=== PATIENT | male | born 1990 | race Caucasian/White ===

== ENCOUNTER 2019-06-20 00:59 | Emergency (ER) | payer SELFPAY ==
[2019-06-20 01:01] VITALS: BP 171/100; PULSE 109; RESP 20; TEMP 36.6; O2SAT 98; BMI 23.7
--- NOTE | 2019-06-20 01:08 | XR_ITS ---
WS: [id number] XR elbow RT min 3V* [id number] REASON FOR EXAM: Right elbow injury FINDINGS: The ulna, radius, olecranon process, medial and lateral collateral ligaments, were all norm al. There is no unusual fat pad changes seen. No soft tissue abnormalities. XR/XR elbow RT min 3V* [id number] IMPRESSION: Negative right elbow.
--- NOTE | 2019-06-20 01:08 | XR_ITS ---
WS: [id number] XR tibia fibula RT 2V [id number] REASON FOR EXAM: Right lower leg pain FINDINGS: Multiple views of the tibia and fibula show normal appearance with no fractures, dislocatio n, or other dyscrasias. There is no soft tissue abnormalities seen. No unusual calcifications are seen. The knees and ankles were normal. XR/XR tibia fibula RT 2V [id number] IMPRESSION: Negative right tibia-fibula study.
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
[2019-06-20 03:29] VITALS: BP 162/111; PULSE 90; O2SAT 97
[2019-06-20] MEDS: ketorolac 30 mg/mL INJ IM (03:33)
== END 2019-06-20 03:29 | disposition home or self-care (01) ==
PROVIDERS: Emergency Provider Physician Assistant
DX: S50.01XA Contusion of right elbow, initial encounter (principal); S60.511A Abrasion of right hand, initial encounter; F17.200 Nicotine dependence, unspecified, uncomplicated; Y09 Assault by unspecified means
CPT/HCPCS: 73080; 73590; 96372; 99281; 99283; J1885

== ENCOUNTER 2019-07-09 10:08 | Outpatient (CLI) | payer SELFPAY ==
--- NOTE | 2019-07-09 10:29 | CT_ITS ---
WS: [id number] CT RIGHT KNEE, NONCONTRAST, 3-D reformats. HISTORY: RIGHT knee joint pain. Technique: All CT scans at [facility] use at least one of these dose optimization techniq ues: automated exposure control; mA and/or kV adjustment per patient size (includes targeted exams wh ere dose is matched to clinical indication); or iterative reconstruction. DLP: 1132.62 mGycm COMPARISON: RIGHT tibia-fibula 06/20/2019. Study is limited by motion artifact. No fractures or dislocation. No osteochondral defects are identi fied. There is a sclerotic lesion in the posterior proximal tibia which is probably a bone island or partially healed cortical defect. Subcortical lucency with sclerotic margin in the posterior tibial m etaphysis consistent with a benign cortical defect. There is no joint effusion. Patella is in normal position. Muscles are symmetric with no atrophy. No hematomas. CT/CT knee RT wo con* [id number] IMPRESSION: 1. No acute fracture or joint effusion. 2. Nonossifying cortical defect posterior tibial metaphysis.
== END 2019-07-09 10:09 | disposition home or self-care (01) ==
PROVIDERS: PCP Nurse Practitioner Family; Visit Provider Nurse Practitioner Family
DX: M25.561 Pain in right knee (principal)
CPT/HCPCS: 73700

== ENCOUNTER → 2019-09-08 14:50 | Outpatient (BNVA) | payer SELFPAY | PROVIDERS: PCP Nurse Practitioner Family; Referring Provider Nurse Practitioner Family; Visit Provider Orthopaedic Surgery | DX: M25.521 Pain in right elbow (principal); M25.421 Effusion, right elbow | CPT/HCPCS: 73080 ==

== ENCOUNTER 2023-12-24 18:03 | Emergency (ER) | payer MEDICAID, SELFPAY ==
[2023-12-24] VITALS (7 sets, daily range): BP systolic 168–200; BP diastolic 118–137; PULSE 88–106; RESP 18–20; TEMP 36.9; O2SAT 95–101
--- NOTE | 2023-12-24 18:16 | ECG_ITS ---
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 Measurements Intervals [place] Rate: 103 P: 46 [place]: 137 QRS: 60 QRSD: 91 T: 21 QT: 321 QTc: 421 Interpretive Statements SINUS TACHYCARDIA No previous ECG available for comparison Electronically Signed On 12-25-2023 8:04:38 CDT by Talha Garcia M.D. [id number]
--- NOTE | 2023-12-24 18:21 | XRR_ITS ---
PROCEDURE INFORMATION: Exam: XR Chest Exam date and time: 12/24/2023 6:24 PM Age: 32 years old Clinical indication: Other: Hypertension TECHNIQUE: Imaging protocol: Radiologic exam of the chest. Views: 1 view. COMPARISON: No relevant prior studies available. FINDINGS: Lungs: The lungs are adequately expanded. No focal consolidations or pulmonary edema. Pleural spaces: No pleural effusions or pneumothorax. Heart/Mediastinum: No cardiomegaly. Bones/joints: No acute fractures. XR/XR chest 1V portable [id number] IMPRESSION: No acute pulmonary disease.
--- NOTE | 2023-12-24 18:22 | W.ED.CHESTPA ---
HPI - Chest Pain General: Chief Complaint: Chest Pain Stated Complaint: High BP Time Seen by Provider: 12/24/23 18:18 History of Present Illness: 32-year-old man who presents to the emergency room with chest pain. This been going on for a few days now. Left-sided. Down his left arm. Pressure. He has been having some dizziness. Mild shortness of breath. He said it has been going on for some time now but much worse over the last couple of days. No lower extremity swelling. No nausea or vomiting. Related Data Previous Rx's Medication Instructions Recorded lisinopril 20 1 tab PO DAILY #30 tabs 12/24/23 mg-hydrochlorothiazide 12.5 mg tablet Allergies Allergy/AdvReac Type Severity Reaction Status Date / Time No Known Allergies Allergy Verified 12/24/23 18:16 Review of Systems Narrative: Constitutional symptoms: Negative except as documented in HPI. Skin symptoms: Negative except as documented in HPI. Eye symptoms: Negative except as documented in HPI. ENMT symptoms: Negative except as documented in HPI. Respiratory symptoms: Negative except as documented in HPI. Cardiovascular symptoms: Negative except as documented in HPI. Gastrointestinal symptoms: Negative except as documented in HPI. Genitourinary symptoms: Negative except as documented in HPI. Musculoskeletal symptoms: Negative except as documented in HPI. Neurologic symptoms: Negative except as documented in HPI. Psychiatric symptoms: Negative except as documented in HPI. Endocrine symptoms: Negative except as documented in HPI. [facility] ED PFSH: Social History (Updated 09/08/19 @ 14:27 by Jennifer Montalvo LPN) Smoking and tobacco/nicotine status: never used tobacco/nicotine Alcohol intake: current Alcohol intake frequency: few times a week Substance/Drug Use: current Physical Exam Narrative: EXAM NARRATIVE: General: Alert, no acute distress. Skin: Warm, dry. Head: Normocephalic, atraumatic. Neck: Supple, trachea midline. Eye: Extraocular movements are intact. Ears, nose, mouth and throat: mucosa moist. Cardiovascular: Regular, Normal peripheral perfusion. Respiratory: Lungs are clear to auscultation, respirations are non-labored, breath sounds are equal, Symmetrical chest wall expansion. Gastrointestinal: Soft, Nontender, Non distended Musculoskeletal: Normal ROM, no deformity. Neurological: Alert and oriented, No focal neurological deficit observed. Psychiatric: Cooperative, appropriate mood & affect. Course Vital Signs: Vital signs: Vital Signs Temperature 98.4 F 12/24/23 18:09 Pulse Rate 106 H 12/24/23 19:29 Respiratory Rate 20 H 12/24/23 19:29 Blood Pressure 182/120 12/24/23 19:43 Pulse Oximetry 101 H 12/24/23 19:29 Oxygen Delivery Me thod Room Air 12/24/23 19:29 MDM - Chest Pain Medical Decision Making Differential diagnosis for patient with chest pain includes but is not limited to and based on the above HPI, review of systems and physical exam: Pneumonia. unstable angina. angina. Acute coronary syndrome / [place]. Pulmonary embolism. Costochondritis / musculoskeletal. Pleurisy. Pericarditis. Esophageal spasm. Pancreatis. Cholecystitis. Orders placed to evaluate differential diagnosis based on the above differential, HPI and physical exam EKG: Time 1805. Rate 103. Sinus tachycardia, No ST-T changes, no ectopy, normal CO & QRS intervals, This was reviewed and interpreted by myself the ER physician at 1807. Chest x-ray: No acute process. No infiltrate. No pneumothorax. This was reviewed and interpreted by myself the ER physician. Lab Review: Laboratory results were reviewed and interpreted by myself the emergency room physician. Lab work is unremarkable. No leukocytosis. BUN and creatinine are mildly elevated at 17 and 1.1. This may be related to his blood pressure. I reviewed the patient's medical record. Reexamination: Patient remained stable. No increased work of breathing. No altered mental status. No focal motor deficits. Blood pressure is improving with medications. Assessment and plan: Accelerated hypertension Noncardiac chest pain ?Clonidine and first dose lisinopril hydrochlorothiazide here in the emergency room. - Discharged home - Discussed findings and plan with patient. Answered any questions. - All laboratory values were reviewed and interpreted personally by myself, the ER physician - All imaging was reviewed and interpreted personally by myself, the ER physician. - Evaluation and treatment of this problem were appropriate in the emergency setting Lab Data 12/24/23 18:32 12/24/23 18:32 Radiology Impressions Chest X-Ray 12/24/23 18:21 IMPRESSION: No acute pulmonary disease. Laboratory Results WBC 7.70 10^3/uL (3.29-11.43) 12/24/23 18:32 RBC 5.49 10^6/uL (3.85-5.65) 12/24/23 18:32 Hgb 17.30 g/dL (11.27-16.99) H 12/24/23 18:32 Hct 51.0 % (37-53) 12/24/23 18:32 MCV 92.9 fl (82-101) 12/24/23 18:32 MCH 31.5 pg (27-33) 12/24/23 18: MCHC 33.9 g/dL (30-55) 12/24/23 18:32 RDW 12.3 % (12.1-15.1) 12/24/23 18:32 Plt Count 179 10^3/cmm (157-399) 12/24/23 18:32 MPV 11.6 fL (7.4-10.4) H 12/24/23 18:32 Neut % (Auto) 63.1 % 12/24/23 18:32 Lymph % (Auto) 24.5 % 12/24/23 18:32 Emmons % (Auto) 9.6 % 12/24/23 18:32 Eos % (Auto) 0.6 % 12/24/23 18:32 Baso % (Auto) 1.6 % 12/24/23 18:32 Neut # (Auto) 4.85 10^3/uL (1.8-7.7) 12/24/23 18: Lymph # (Auto) 1.9 10^3/uL (0.8-4.8) 12/24/23 18:32 Emmons # (Auto) 0.7 10^3/uL (0.2-0.9) 12/24/23 18: Eos # (Auto) 0.1 10^3/uL (0.0-0.8) 12/24/23 18: Baso # (Auto) 0.1 10^3/uL (0.0-0.1) 12/24/23 18: Nucleated RBC % (auto) 0 % 12/24/23 18: Nucleated RBCs # 0.0 /100WBC 12/24/23 18:32 Sodium 137 mmol/L (136-145) 12/24/23 18:32 Potassium 4.5 mmol/L (3.5-5.1) 12/24/23 18:32 Chloride 98 mmol/L (98-107) 12/24/23 18:32 Carbon Dioxide 22 mmol/L (22-29) 12/24/23 18:32 Anion Gap 21.5 (5-19) H 12/24/23 18:32 BUN 17 mg/dL (6-20) 12/24/23 18:32 Creatinine 1.1 mg/dL (0.7-1.2) 12/24/23 18:32 GFR Calculation 78.6 mL/min (90-130) L 12/24/23 18:32 Glucose 102 mg/dL (65-115) 12/24/23 18:32 Calculated Osmolality 286 mOsm/kg (285-295) 12/24/23 18:32 Calcium 9.9 mg/dL (8.5-10.5) 12/24/23 18:32 Total Bilirubin 0.3 mg/dL (0.15-1.2) 12/24/23 18:32 AST 58 U/L (0-40) H 12/24/23 18:32 ALT 143 U/L (0-41) H 12/24/23 18:32 Alkaline Phosphatase 77 U/L (40-130) 12/24/23 18:32 Troponin T Baseline < 6 ng/L (0-15) 12/24/23 18:32 Total Protein 8.3 g/dL (6.6-8.7) 12/24/23 18:32 Albumin 4.9 g/dL (3.5-5.2) 12/24/23 18:32 Globulin 3.4 g/dL (1.3-4.6) 12/24/23 18:32 All radiology interpretation(s) finalized by discharge Discharge Plan Discharge Patient Disposition: Home Clinical Impression: Accelerated hypertension, Non-cardiac chest pain Condition: Stable Prescriptions: New lisinopril-hydrochlorothiazide 20-12.5 mg tablet 1 tab PO DAILY Qty: 30 0RF Discharge Orders: Discharge ED (Routine); Ordered 12/24/23 Ordered By: Radhika Beltran Referrals: Lionel Kauffman NP [Primary Care Provider] - Discharge Diet: Usual diet Discharge Activity: Increase activity as tolerated Patient Instructions: Hypertension (ED) Activity Restrictions/Additional Instructions: Discontinue blood pressure medications if you start feeling dizzy and her having low blood pressure. Please keep your follow-up with your primary care provider for continued blood pressure control. Thank you for choosing [facility] for your healthcare needs today. Please realize this is an emergency room and that we are providing you with a medical screening exam and this may not be complete and all inclusive of all the testing and or work up that you may need to determine your ailment or severity of your illness. You have been screened and evaluated and felt safe for discharge. Health conditions do change or evolve sometimes and as such it is important that you follow up with your Primary Doctor to be re checked, 3-5 days is a general good time frame for follow up. You are always welcome to return to the ED for re assessment if your symptoms are worsening or you have new concerns Coding Level of Care Code ED Pr Manager for Mirta Harrington
[2023-12-24 18:43] LABS: Basophils # 0.1 10^3/uL (0.0-0.1); Basophils % 1.6 %; Eosinophils # 0.1 10^3/uL (0.0-0.8); Eosinophils % 0.6 %; Lymphocytes # 1.9 10^3/uL (0.8-4.8); Lymphocytes % 24.5 %; Mean Corpuscular HGB Conc 33.9 g/dL (30-55); Mean Corpuscular Hemoglobin 31.5 pg (27-33); Mean Corpuscular Volume 92.9 fl (82-101); Mean Platelet Volume 11.6 fL (7.4-10.4); Monocytes # 0.7 10^3/uL (0.2-0.9); Monocytes % 9.6 %; Neutrophils # 4.85 10^3/uL (1.8-7.7); Neutrophils % 63.1 %; Nucleated Red Blood Cells % 0 %; Platelet Count 179 10^3/cmm (157-399); Red Blood Count 5.49 10^6/uL (3.85-5.65); Red Cell Distribution Width 12.3 % (12.1-15.1)
[2023-12-24 19:09] LABS: Troponin(5th) Baseline < 6 ng/L (0-15)
[2023-12-24 19:10] LABS: Alanine Aminotransferase 143 U/L (0-41); Albumin Level 4.9 g/dL (3.5-5.2); Alkaline Phosphatase 77 U/L (40-130); Anion Gap 21.5 (5-19); Aspartate Amino Transferase 58 U/L (0-40); Blood Urea Nitrogen 17 mg/dL (6-20); Calcium 9.9 mg/dL (8.5-10.5); Carbon Dioxide 22 mmol/L (22-29); Chloride 98 mmol/L (98-107); Creatinine Clr Calc Pharmacy 124.9472; Globulin 3.4 g/dL (1.3-4.6); Glomerular Filtration Rate 78.6 mL/min (90-130); Glucose 102 mg/dL (65-115); Osmolality Calculated 286 mOsm/kg (285-295); Potassium 4.5 mmol/L (3.5-5.1); Sodium 137 mmol/L (136-145); Total Bilirubin 0.3 mg/dL (0.15-1.2); Total Protein 8.3 g/dL (6.6-8.7)
[2023-12-24] MEDS: hydroCHLOROthiazide 25 mg Tablet 12.5 MG PO (19:27)
[2023-12-24] MEDS: lisinopril 20 mg Tablet PO (19:27)
[2023-12-24] MEDS: cloNIDine 0.1 mg Tablet PO (19:28)
== END 2023-12-24 20:19 | disposition home or self-care (01) ==
PROVIDERS: Emergency Provider Emergency Medicine; PCP Nurse Practitioner Family
DX: R07.89 Other chest pain (principal); I10 Essential (primary) hypertension; R00.0 Tachycardia, unspecified
CPT/HCPCS: 36415; 71045; 80053; 84484; 85025; 93005; 99285

== ENCOUNTER → 2024-04-07 15:07 | Outpatient (BNVA) | payer MEDICAID, SELFPAY | PROVIDERS: PCP Nurse Practitioner; Visit Provider Nurse Practitioner | DX: I10 Essential (primary) hypertension (principal); F41.8 Other specified anxiety disorders; R74.01 Elevation of levels of liver transaminase levels | CPT/HCPCS: 80053; 80061; 85025; 86705; 86706; 86709; 86803; 87340 ==

== ENCOUNTER 2024-12-26 17:10 | Emergency (ER) | payer SELFPAY ==
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
--- OUTSIDE RECORDS SUMMARY | 2024-12-26 17:15 | XMS_ITS | Encounter Summary ---
Author Organization [facility] Address [address] [place] [address] Care Team Providers Care Shop Tailor Apprentice Name Role Phone Christine Castano MD, Ortiz Heredia Primary Care Provider Encounter Details Date Type Department Care Team (Late st Contact Info) Description 08/20/2000 Outpatient Historical [facility] [place] [address] [place] [id number] Ortiz Maya MD NO ADDRESS ON FILE Social History Tobacco Use Types Packs/Day Years Used Date Smoking Tobacco: Never Assessed Sex and Gender Information Value Date Recorded Sex Assigned at Not on file Legal Sex Male 3:35 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
--- OUTSIDE RECORDS SUMMARY | 2024-12-26 17:15 | XMS_ITS | Encounter Summary ---
Author Organization [facility] Address [address] [place] [address] Care Team Providers Care Aluminum Molder Name Role Phone Christine Castano MD, Oritz Heredia Primary Care Provider Encounter Details Date Type Department Care Team ([facility] st Contact Info) Description 08/20/2000 Outpatient Historical [facility] Ortiz Maya MD NO ADDRESS ON FILE Unspecified asthma(493.90) (Primary Dx) Social History Tobacco Use Types Packs/Day Years Used Date Smoking Tobacco: Never Assessed Sex and Gender Information Value Date Recorded Sex Assigned at Not on file Legal Sex Male 3:35 AM CHEF DE CUISINE Gender Identity Not on file Sexual Orientation Not on file documented as of this encounter Plan of Treatment Not on file documented as of this encounter Visit Diagnoses Diagnosis Unspecified asthma(493.90)- Primary Unspecified asthma documented in this encounter Care Teams Aluminum Molder Relationship Specialty Start Date End Date Ortiz King Jr., MD [address] [address] PCP - General 06/04/09 documented as of this encounter
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
[2024-12-26 17:17] VITALS: BP 150/106; PULSE 126; RESP 19; TEMP 37.4; O2SAT 98; BMI 29.5
--- NOTE | 2024-12-26 17:17 | XRR_ITS ---
PROCEDURE INFORMATION: Exam: XR Chest Exam date and time: 12/26/2024 5:47 PM Age: 34 years old Clinical indication: Shortness of breath; Additional info: Chest pressure; HTN TECHNIQUE: Imaging protocol: Radiologic exam of the chest. Views: 1 view. COMPARISON: CR XR chest 1V portable [id number] 12/24/2023 6:24 PM FINDINGS: Lungs: Unremarkable. No consolidation. Pleural spaces: Unremarkable. No pleural effusion. No pneumothorax. Heart/Mediastinum: Unremarkable. No cardiomegaly. Bones/joints: Unremarkable. XR/XR chest 1V portable [id number] IMPRESSION: No acute findings.
--- NOTE | 2024-12-26 17:22 | ECG_ITS ---
[facility] Date: 2024-12-26 Pat Name: Rob Irby Department: Room: Gender: Male Professional Nursing Assistant: : 1990 Requested By: Winnie Hernandez Order Number: [id number] Arriaga MD: Ney Morales M.D. Measurements Intervals [place] Rate: 118 P: 63 IN: 112 QRS: 101 QRSD: 89 T: 47 QT: 305 QTc: 429 Interpretive Statements SINUS TACHYCARDIA WITH SHORT IN INTERVAL RIGHT AXIS DEVIATION [QRS AXIS > 100] Compared to ECG 12/24/2023 18:05:53 Right-axis deviation now present Electronically Signed On 12-27-2024 22:12:53 CDT by Ney Morales M.D. [email or web address]
[2024-12-26 18:19] VITALS: BP 151/103; PULSE 106; O2SAT 96
--- NOTE | 2024-12-26 18:37 | W.ED.SOB ---
HPI - SOB/Dyspnea General: Chief Complaint: Shortness of Breath/Dyspnea Stated Complaint: lung issues Time Seen by Provider: 12/26/24 17:27 History of Present Illness: HPI Narrative: 34-year-old male patient had been drinking last night. His significant other says that he turned his head and vomited. Following his vomiting episode, he went stiff for 5 to 7 seconds and was not breathing. He gasp for air afterwards, and still had vomited in his throat and in his nose. She is afraid he aspirated. Afterward, he had trouble breathing. Ambulance was called. He was given a breathing treatment and felt significantly improved at that point so he did not come to the hospital. Since that time though, he has had a bit of trouble breathing on and off. Significant other has heard wheezing on and off. He has a history of asthma. He has had a cough, nonproductive. He thought he might have a fever, his temperature is 99.3. No sick contacts. Related Data Home Medications ?Medication ?Instructions ?Recorded ?Confirmed esomeprazole magnesium 20 mg 20 mg PO DAILY 01/21/24 07/13/24 capsule,delayed release (Acid Proof Machine Operator Supervisor (esomeprazole)) Previous Rx's ?Medication ?Instructions ?Recorded aspirin 81 mg tablet,delayed 81 mg PO DAILY #30 tabs 01/21/24 release triamcinolone acetonide 55 mcg 2 spray intranasal DAILY #16.9 mL 01/21/24 nasal spray aerosol magnesium oxide 800 mg (2 x 400 mg magnesium) PO 04/07/24 DAILY #60 tabs amlodipine 5 mg tablet (Norvasc) 5 mg PO DAILY #30 tabs 07/13/24 escitalopram oxalate 10 mg tablet 10 mg PO .at dinner #30 tabs 07/13/24 (Lexapro) fenofibrate nanocrystallized 145 145 mg PO DAILY #30 tabs 07/13/24 mg tablet (Tricor) lisinopril 30 mg tablet 30 mg PO DAILY #30 tabs 07/13/24 propranolol 10 mg tablet 10 mg PO BID #60 tabs 07/13/24 albuterol sulfate 90 mcg/actuation 2 inh inhalation Q4H PRN shortness 12/26/24 aerosol inhaler of breath or wheezing #6.7 grams methylprednisolone 4 mg tablets in See Rx Instructions PO .COMPLEX 12/26/24 a dose pack (Medrol (Neymar)) #21 ea Allergies Allergy/AdvReac Type Severity Reaction Status Date / Time No Known Allergies Allergy Verified 07/13/24 16:34 PFSH ED PFSH: Medical History Essential hypertension Surgical History No pertinent past surgical history Family History Other Cancer Diabetes Hypertension Social History Smoking and tobacco/nicotine status: never used tobacco/nicotine Alcohol intake: current Alcohol intake frequency: few times a week Substance/Drug Use: unknown Adopted: No Caregiver/support person: No Lives independently: Yes Household members: spouse Housing: House Marital status: Number of children: 0 service: No Current occupational status: employed Do you think of yourself as: Straight/Heterosexual Current gender identity: Male Physical Exam Const: COMMON NORMALS: no acute distress GENERAL APPEARANCE: cooperative; not ill appearing and not frail appearing HENMT: COMMON NORMALS: normocephalic, atraumatic and Normal external nose present HEAD & SCALP: normocephalic and atraumatic FACE & SINUS: normal facial exam and face symmetric NOSE: Normal external nose present Eye: COMMON NORMALS: Equal, round and reactive pupils present and EOMs intact bilaterally PUPIL: Yes Equal, round and reactive pupils present Neck/C-Spine: GENERAL: Yes trachea midline Chest: CHEST: Yes Symmetrical chest wall rise Resp: COMMON NORMALS: normal respiratory effort, No retractions and No use of accessory muscles AUSCULTATION: wheezes (Right greater than left) Cardio: COMMON NORMALS: regular rhythm RATE: tachycardic RHYTHM: regular rhythm GI: COMMON NORMALS: Normal to inspection, nondistended, normoactive bowel sounds present Extremity: COMMON NORMALS: no pedal edema Neuro: OLGA COMA SCALE: document GCS findings [place] coma scale eye opening: Spontaneous [place] coma scale verbal response: Orientated [place] coma scale motor response: Obey commands [place] coma scale total score: 15 SENSORY EXAM: Yes extremities (intact) Psych: COMMON NORMALS: speech normal SPEECH: Yes normal speech Skin: COMMON NORMALS: no rashes or lesions noted GENERAL SKIN EXAM: no rashes or lesions noted Course Vital Signs: Vital signs: Vital Signs Temperature 99.3 F 12/26/24 17:17 Pulse Rate 94 12/26/24 21:05 Respiratory Rate 18 12/26/24 19:27 Blood Pressure 146/113 12/26/24 21:05 Pulse Oximetry 96 12/26/24 21:05 Oxygen Delivery Me thod Room Air 12/26/24 20:36 MDM - SOB/Dyspnea Medical Decision Making 34-year-old male patient with tachycardia, chest tightness, some wheezing, and shortness of breath. He tells me he has a history of asthma. His EKG shows sinus tachycardia, with a S1Q3T3 pattern. D-dimers been ordered because of this. His temperature is 99.3. This was most likely an aspiration pneumonitis. Will check other things on the differential including viral pneumonitis, PE, anemia, etc. He will be given a breathing treatment and steroids for now. Tachycardia and hypertension could be simply from mild alcohol withdrawal. D-dimer is nondetectable. Chest x-ray is nonacute. He will be allowed home with pneumonitis on steroids and albuterol. Lab Data 12/26/24 18:51 12/26/24 18:51 Labs/Radiology: Radiology Impressions Chest X-Ray 12/26/24 17:17 IMPRESSION: No acute findings. Laboratory Results WBC 10.56 10^3/uL (3.29-11.43) 12/26/24 18:51 RBC 5.12 10^6/uL (3.85-5.65) 12/26/24 18:51 Hgb 16.30 g/dL (11.27-16.99) 12/26/24 18:51 Hct 47.4 % (37-53) 12/26/24 18:51 MCV 92.6 fl (82-101) 12/26/24 18:51 MCH 31.8 pg (27-33) 12/26/24 18:51 MCHC 34.4 g/dL (30-55) 12/26/24 18:51 RDW 12.7 % (12.1-15.1) 12/26/24 18:51 Plt Count 188 10^3/cmm (157-399) 12/26/24 18:51 MPV 11.0 fL (7.4-10.4) H 12/26/24 18:51 Neut % (Auto) 69.7 % 12/26/24 18:51 Lymph % (Auto) 21.6 % 12/26/24 18:51 [place] % (Auto) 7.0 % 12/26/24 18:51 Eos % (Auto) 0.5 % 12/26/24 18:51 Baso % (Auto) 0.8 % 12/26/24 18:51 Neut # (Auto) 7.37 10^3/uL (1.8-7.7) 12/26/24 18:51 Lymph # (Auto) 2.3 10^3/uL (0.8-4.8) 12/26/24 18:51 [place] # (Auto) 0.7 10^3/uL (0.2-0.9) 12/26/24 18:51 Eos # (Auto) 0.1 10^3/uL (0.0-0.8) 12/26/24 18:51 Baso # (Auto) 0.1 10^3/uL (0.0-0.1) 12/26/24 18:51 Nucleated RBC % (auto) 0 % 12/26/24 18:51 Nucleated RBCs # 0.0 /100WBC 12/26/24 18:51 D-Dimer <= 0.27 ug/mLFEU (0-0.59) 12/26/24 18:51 Sodium 136 mmol/L (136-145) 12/26/24 18:51 Potassium 4.6 mmol/L (3.5-5.1) 12/26/24 18:51 Chloride 98 mmol/L (98-107) 12/26/24 18:51 Carbon Dioxide 23 mmol/L (22-29) 12/26/24 18:51 Anion Gap 19.6 (5-19) H 12/26/24 18:51 BUN 13 mg/dL (6-20) 12/26/24 18:51 Creatinine 1.0 mg/dL (0.7-1.2) 12/26/24 18:51 GFR Calculation 86.6 mL/min (90-130) L 12/26/24 18:51 Glucose 99 mg/dL (65-115) 12/26/24 18:51 Calculated Osmolality 282 mOsm/kg (285-295) L 12/26/24 18:51 Lactic Acid 1.8 mmol/L (0.5-2.2) 12/26/24 18:51 Calcium 10.2 mg/dL (8.5-10.5) 12/26/24 18:51 Total Bilirubin 0.8 mg/dL (0.15-1.2) 12/26/24 18:51 AST 91 U/L (0-40) H 12/26/24 18:51 ALT 220 U/L (0-41) H 12/26/24 18:51 Alkaline Phosphatase 96 U/L (40-130) 12/26/24 18:51 NT-Pro-B Natriuret Pep < 36 pg/mL (0-125) 12/26/24 18:51 Total Protein 8.6 g/dL (6.6-8.7) 12/26/24 18:51 Albumin 4.6 g/dL (3.5-5.2) 12/26/24 18:51 Globulin 4.0 g/dL (1.3-4.6) 12/26/24 18:51 Influenza A (PCR) Negative (Negative) 12/26/24 20:30 Influenza Type B (PCR) Negative (Negative) 12/26/24 20:30 RSV (PCR) Negative (Negative) 12/26/24 20:30 SARS-CoV-2 (PCR) Negative (Negative) 12/26/24 20:30 All radiology interpretation(s) finalized by discharge Discharge Plan Discharge Patient Disposition: Home Clinical Impression: Pneumonitis Condition: Stable Prescriptions: New methylprednisolone [Medrol (Neymar)] 4 mg tablets,dose pack See Rx Instructions .ROUTE .COMPLEX Qty: 21 0RF Rx Instructions: orally per package directions albuterol sulfate 90 mcg/actuation HFA aerosol inhaler 2 inh INHALATION Q4H PRN (Reason: shortness of breath or wheezing) Qty: 6.7 1RF No Action magnesium oxide 400 mg magnesium tablet 800 mg PO DAILY Qty: 60 2RF escitalopram oxalate [Lexapro] 10 mg tablet 10 mg PO .at dinner Qty: 30 5RF amlodipine [Norvasc] 5 mg tablet 5 mg PO DAILY Qty: 30 5RF fenofibrate nanocrystallized [Tricor] 145 mg tablet 145 mg PO DAILY Qty: 30 5RF lisinopril 30 mg tablet 30 mg PO DAILY Qty: 30 5RF propranolol 10 mg tablet 10 mg PO BID Qty: 60 5RF esomeprazole magnesium [Acid Proof Machine Operator Supervisor (esomeprazole)] 20 mg capsule,delayed release(DR/EC) 20 mg PO DAILY aspirin 81 mg tablet,delayed release (DR/EC) 81 mg PO DAILY Qty: 30 0RF Rx Instructions: OTC triamcinolone acetonide 55 mcg aerosol,spray 2 spray intranasal DAILY Qty: 16.9 0RF Rx Instructions: administer into each nostril Discharge Orders: Discharge ED (Routine); Ordered 12/26/24 Ordered By: Gerald Wallace Referrals: Cathy Rodriguez, [facility] [Primary Care Provider, Family Practice] Patient Instructions: Pneumonitis (ED), Opioid Safety, Pain Management, Patient Portal & Donald Instructions Activity Restrictions/Additional Instructions: Your x-ray was clear. Given your wheezing on exam, you will be placed on a tapering dose of steroid medication and inhaler. Return for worsening shortness of breath despite treatment, develop significant chest pain, any other concerning symptoms. Follow-up with your doctor. Call her to set up for an appointment. Print Language: New Zealander Coding Level of Care Code ED Netezza Architect for Mirta Harrington
[2024-12-26] MEDS: methylPREDNISolone sod succ 125 mg/2 mL INJ IVP (18:54)
[2024-12-26 18:57] LABS: Hematocrit 47.4 % (37-53); Hemoglobin 16.30 g/dL (11.27-16.99); Mean Corpuscular HGB Conc 34.4 g/dL (30-55); Mean Corpuscular Hemoglobin 31.8 pg (27-33); Mean Corpuscular Volume 92.6 fl (82-101); Nucleated Red Blood Cells % 0 %; Platelet Count 188 10^3/cmm (157-399); Red Blood Count 5.12 10^6/uL (3.85-5.65); White Blood Count 10.56 10^3/uL (3.29-11.43)
[2024-12-26 19:27] VITALS: PULSE 88; RESP 18; O2SAT 99
[2024-12-26 19:32] LABS: Lactic Sepsis W/Reflex 1.8 mmol/L (0.5-2.2)
[2024-12-26 19:43] LABS: Alanine Aminotransferase 220 U/L (0-41); Albumin Level 4.6 g/dL (3.5-5.2); Alkaline Phosphatase 96 U/L (40-130); Anion Gap 19.6 (5-19); Aspartate Amino Transferase 91 U/L (0-40); Blood Urea Nitrogen 13 mg/dL (6-20); Calcium 10.2 mg/dL (8.5-10.5); Carbon Dioxide 23 mmol/L (22-29); Chloride 98 mmol/L (98-107); Creatinine Clr Calc Pharmacy 136.5756; Globulin 4.0 g/dL (1.3-4.6); Glucose 99 mg/dL (65-115); NT Pro B Type Natriuretic Pept < 36 pg/mL (0-125); Osmolality Calculated 282 mOsm/kg (285-295); Potassium 4.6 mmol/L (3.5-5.1); Sodium 136 mmol/L (136-145); Total Protein 8.6 g/dL (6.6-8.7)
[2024-12-26 20:36] VITALS: BP 139/101; PULSE 98; O2SAT 92
[2024-12-26 21:05] VITALS: BP 146/113; PULSE 94; O2SAT 96
[2024-12-26 21:34] LABS: Respiratory Syncytial Virus Ce NEGATIVE (Negative); SARS-CoV-2 PCR NEGATIVE (Negative)
== END 2024-12-26 21:10 | disposition home or self-care (01) ==
PROVIDERS: Emergency Provider Emergency Medicine; PCP Nurse Practitioner
DX: J98.4 Other disorders of lung (principal); Z79.82 Long term (current) use of aspirin; Z11.52 Encounter for screening for COVID-19
CPT/HCPCS: 36415; 71045; 80053; 83605; 83880; 85025; 85378; 87637; 93005; 94640; 96374; 99285; J2919; J9999

== ENCOUNTER → 2025-04-05 15:52 | Outpatient (BNVA) | payer MEDICAID, SELFPAY | PROVIDERS: PCP Nurse Practitioner; Visit Provider Nurse Practitioner | DX: E78.2 Mixed hyperlipidemia (principal); I10 Essential (primary) hypertension; E55.9 Vitamin D deficiency, unspecified | CPT/HCPCS: 80053; 80061; 82306; 82607; 84443 ==

== ENCOUNTER 2025-04-12 11:11 | Outpatient (CLI) | payer MEDICAID, SELFPAY ==
--- NOTE | 2025-04-12 11:15 | US_ITS ---
WS: [id number] RIGHT UPPER QUADRANT ULTRASOUND HISTORY: R74.01 - Elevation of levels of liver transaminase levels COMPARISON: None available. Liver: 16.4 cm in length. Diffuse coarse echotexture throughout the liver. No mass. Portal Vein: Normal hepatopetal flow with monophasic waveform. Gallbladder: Normally distended gallbladder with no stones or wall thickening. CBD: 0.3 cm Pancreas: Partially obscured by body habitus. Right kidney: 10.2 cm in length. Normal size and echogenicity. No hydronephrosis or mass. Aorta and IVC: Unremarkable abdominal aorta and IVC. No ascites. US/US liver [id number] IMPRESSION: 1. Normal gallbladder. 2. Mild diffuse hepatic steatosis. No intrahepatic duct dilatation.
== END 2025-04-12 11:12 | disposition home or self-care (01) ==
PROVIDERS: PCP Nurse Practitioner; Visit Provider Nurse Practitioner
DX: R74.01 Elevation of levels of liver transaminase levels (principal); K76.0 Fatty (change of) liver, not elsewhere classified
CPT/HCPCS: 76705